=== PATIENT | female | born 1995 | race Two or more races ===

== ENCOUNTER → 2019-12-19 | Outpatient (CLI) | payer OTHER | END | disposition home or self-care (01) | LOC: PRENATAL 12:23 | DX: O35.3XX0 Maternal care for (suspected) damage to fetus from viral disease in mother, not applicable or unspecified (principal); O34.211 Maternal care for low transverse scar from previous cesarean delivery; O34.42 Maternal care for other abnormalities of cervix, second trimester; Z36.89 Encounter for other specified antenatal screening ==